=== PATIENT | male | born 1985 | race Caucasian/White ===

== ENCOUNTER 2022-07-05 13:24 | Emergency (ER) | payer OTHER, SELFPAY ==
[2022-07-05 13:43] VITALS: BP 129/82; PULSE 63; RESP 18; TEMP 36.8; O2SAT 99; BMI 26.6
--- NOTE | 2022-07-05 13:45 | DI.RAD.S_ITS ---
PROCEDURE: XR CHEST 1V INDICATIONS: chest pain TECHNIQUE: One view of the chest was acquired. COMPARISON: None. FINDINGS: Surgical changes and devices: None. Lungs and pleura: Lungs are clear. No pleural effusions or pneumothorax. Mediastinum: Mediastinal contours appear normal. Heart size is normal. Bones and chest wall: No suspicious bony lesions. Overlying soft tissues appear unremarkable. IMPRESSION: No acute process. Dictated by: Alejandro Fernandez M.D. on 07/05/2022 at 15:20 Approved by: Alejandro Fernandez M.D. on 07/05/2022 at 15:20
[2022-07-05 14:14] LABS: Add Manual Diff / Slide Review NO; Basophils Absolute Auto 100 /uL (0-100); Basophils Percent Auto 0.8 % (0-2); Eosinophils Absolute Auto 100 /uL (0-450); Hematocrit 44.9 % (41-53); Hemoglobin 15.5 g/dL (13.5-17.5); Lymphocytes Absolute Auto 2100 /uL (1100-4500); Lymphocytes Percent Auto 24.5 % (25-40); Mean Corpuscular HGB Conc 34.5 % (30-36); Mean Corpuscular Hemoglobin 28.9 PG (26-34); Mean Corpuscular Volume 83.8 fL (80-100); Monocytes Absolute Auto 700 /uL (0-900); Monocytes Percent Auto 7.8 % (3-14); Neutrophils Absolute Auto 5600 /uL (1500-7000); Neutrophils Percent Auto 65.9 % (50-75); Platelet Count 271 X10^3/uL (150-400); Red Blood Cell Count 5.36 X10^6/uL (4.5-5.9); Red Cell Distribution Width 13.1 % (11.6-14.8); White Blood Cell Count 8.5 X10^3/uL (4.5-11.0)
[2022-07-05 14:31] LABS: Alanine Aminotransferase 29 IU/L (<50); Albumin 4.4 g/dL (3.5-5.0); Albumin Globulin Ratio 1.6 (1.0-2.8); Alkaline Phosphatase 56 U/L (38-126); Aspartate Aminotransferase 30 IU/L (17-59); Bilirubin Total 0.5 mg/dL (0.2-1.3); Blood Urea Nitrogen 15 mg/dL (9-20); Calcium 9.4 mg/dL (8.4-10.2); Carbon Dioxide 26 mmol/L (22-32); Chloride 103 mmol/L (98-107); Creatine Kinase 63 U/L (55-170); Estimated Glomerular Filt Rate > 60 mL/min (>60); Globulin 2.8 g/dL (1.7-4.1); Glucose 101 mg/dL (70-100); HEMOLYSIS < 15 (0-50); Lipase 107 U/L (23-300); Magnesium 1.8 mg/dL (1.6-2.3); Potassium 3.8 mmol/L (3.4-5.1); Sodium 140 mmol/L (137-145); Total Protein 7.2 g/dL (6.3-8.2)
[2022-07-05 14:43] LABS: Troponin I < 0.012 ng/mL (0.01-0.034)
--- NOTE | 2022-07-05 14:49 | ED_ITS ---
HPI - Chest Pain <GUERO Luna - Last Filed: 07/05/22 20:11> General Chief Complaint: Chest Pain Stated Complaint: Chest pains Time Seen by Provider: 07/05/22 14:37 Source: patient Mode of arrival: Family Vehicle Limitations: no limitations History of Present Illness HPI narrative: This is a 37-year-old male presents to the emergency department with concern about his left-sided chest pain which he states is present with deep breaths, and with certain movements. He says it is reproducible but he also endorses that he woke up with it this morning. He states it started last night, states that he is COVID vaccinated x2, he had a runny nose days ago, denies a sore throat, shortness of breath, difficulty breathing, epigastric pain, flank pain or other pain other than the anterior left upper chest. He denies any radiation, endorses feeling dehydrated because he has not been drinking water. Denies any history of hypertension, coronary artery disease, any family history of cardiac at a young age, any palpitations, shortness of breath or heartburn. Related Data Allergies Allergy/AdvReac Type Severity Reaction Status Date / Time No Known Drug Allergies Allergy Verified 07/05/22 13:50 Review of Systems <GUERO Luna - Last Filed: 07/05/22 20:11> Review of Systems Narrative: Review of systems is negative for acute abnormalities unless otherwise noted in HPI Patient History <GUERO Luna - Last Filed: 07/05/22 20:11> Social History Smoking Status: Former smoker Smoking Status: Former smoker alcohol intake frequency: 0-2 drinks per day Substance Use Type: does not use Exam <GUERO Luna - Last Filed: 07/05/22 20:11> Narrative Exam Narrative: Reviewed vitals signs and nursing notes. General: cooperative, comfortable, in no acute distress, well groomed HEENT: symmetrical facial expressions, moist mucous membranes Cardiovascular: regular rate and rhythm, S1-S2 without tachycardia or arrhythmia, no murmur, gallop or rub, no peripheral edema, warm extremities Respiratory: normal effort, able to speak in complete sentences, without wheezing, stridor, or abnormal breath sounds. No retractions or tachypnea. GI: abdomen soft, no tenderness to the right upper quadrant, nontender to palpation, nondistended, without masses, rebound tenderness or exquisite tenderness with exam. MSK: moves all extremities, neurovascularly intact, no weakness, normal tone Skin: brisk capillary refill, without pallor or erythema Neuro: normal speech and cognition, A&O x3, ambulatory, clear speech Psych: mental status is grossly normal, congruent mood, normal affect, pleasant and cooperative Initial Vital Signs Initial Vital Signs: Vital Signs Temperature 98.2 F 07/05/22 13:43 Pulse Rate 63 07/05/22 13:43 Respiratory Rate 18 07/05/22 13:43 Blood Pressure 129/82 07/05/22 13:43 Pulse Oximetry 99 07/05/22 13:43 Oxygen Delivery Method 07/05/22 13:43 <Summer Banks DO - Last Filed: 07/06/22 08:24> Initial Vital Signs Initial Vital Signs: Vital Signs Temperature 98.2 F 07/05/22 13:43 Pulse Rate 63 07/05/22 13:43 Respiratory Rate 18 07/05/22 13:43 Blood Pressure 129/82 07/05/22 13:43 Pulse Oximetry 99 07/05/22 13:43 Oxygen Delivery Method 07/05/22 13:43 Course <GUERO Luna - Last Filed: 07/05/22 20:11> Orders Ordered: ED Orders 07/05/22 13:45 XR chest 1V Stat 07/05/22 13:46 EKG-12 Lead Stat 07/05/22 13:59 Complete Blood Count AUTO DIFF Stat Comprehensive Metabolic Panel Stat Lipase Stat Magnesium Stat Troponin & CK Cardiac Panel Stat 07/05/22 15:01 Covid-19 + FLU A/B + RSV - PCR Stat EKG-12 Lead Stat Vital Signs Vital signs: Vital Signs - 8 hr 07/05/22 13:43 07/05/22 15:55 Temperature 98.2 F Pulse Rate 63 66 Respiratory Rate 18 16 Blood Pressure 129/82 120/69 Pulse Oximetry 99 99 Oxygen Delivery Method Room Air Room Air <Summer Banks DO - Last Filed: 07/06/22 08:24> Orders Ordered: ED Orders 07/05/22 13:45 XR chest 1V Stat 07/05/22 13:46 EKG-12 Lead Stat 07/05/22 13:59 Complete Blood Count AUTO DIFF Stat Comprehensive Metabolic Panel Stat Lipase Stat Magnesium Stat Troponin & CK Cardiac Panel Stat 07/05/22 15:01 Covid-19 + FLU A/B + RSV - PCR Stat EKG-12 Lead Stat Vital Signs Vital signs: Vital Signs - 8 hr 07/05/22 13:43 07/05/22 15:55 Temperature 98.2 F Pulse Rate 63 66 Respiratory Rate 18 16 Blood Pressure 129/82 120/69 Pulse Oximetry 99 99 Oxygen Delivery Method Room Air Room Air MDM - Chest Pain <Tuyet Rendon, [facility] [place] - Last Filed: 07/05/22 20:11> Lab Data Result diagrams: 07/05/22 13:59 07/05/22 13:59 Labs: Lab Results 07/05/22 07/05/22 07/05/22 Range/Units 13:59 13:59 15:01 WBC 8.5 (4.5-11.0) X10^3/uL RBC 5.36 (4.5-5.9) X10^6/uL Hgb 15.5 (13.5-17.5) g/dL Hct 44.9 (41-53) % MCV 83.8 (80-100) fL MCH 28.9 (26-34) PG MCHC 34.5 (30-36) % RDW 13.1 (11.6-14.8) % Plt Count 271 (150-400) X10^3/uL Neut % (Auto) 65.9 (50-75) % Lymph % (Auto) 24.5 L (25-40) % Trigg % (Auto) 7.8 (3-14) % Eos % (Auto) 1.0 L (2-4) % Baso % (Auto) 0.8 (0-2) % Neut # (Auto) 5600 (7689-6330) /uL Lymph # (Auto) 2100 (7436-0318) /uL Trigg # (Auto) 700 (0-900) /uL Eos # (Auto) 100 (0-450) /uL Baso # (Auto) 100 (0-100) /uL Sodium 140 (137-145) mmol/L Potassium 3.8 (3.4-5.1) mmol/L Chloride 103 (98-107) mmol/L Carbon Dioxide 26 (22-32) mmol/L BUN 15 (9-20) mg/dL Creatinine 1.07 (0.66-1.25) mg/dL Estimated GFR > 60 (>60) mL/min BUN/Creatinine Ratio 14.0 (6-22) Glucose 101 H (70-100) mg/dL Calcium 9.4 (8.4-10.2) mg/dL Magnesium 1.8 (1.6-2.3) mg/dL Total Bilirubin 0.5 (0.2-1.3) mg/dL AST 30 (17-59) IU/L ALT 29 (<50) IU/L Alkaline Phosphatase 56 (38-126) U/L Total Creatine Kinase 63 (55-170) U/L CK-MB (CK-2) TNP CK-MB (CK-2) Rel Index TNP Troponin I < 0.012 (0.01-0.034) ng/mL Total Protein 7.2 (6.3-8.2) g/dL Albumin 4.4 (3.5-5.0) g/dL Globulin 2.8 (1.7-4.1) g/dL Albumin/Globulin Ratio 1.6 (1.0-2.8) Lipase 107 (23-300) U/L SARS-CoV-2 (PCR) Negative (Negative) Influenza A (RT-PCR) Flu a negative (NEGATIVE) Influenza B (RT-PCR) Flu b negative (NEGATIVE) RSV (PCR) Negative (Negative) Imaging Data Chest x-ray: Radiologist's Impression: PROCEDURE:? XR CHEST 1V ? INDICATIONS:? chest pain ? TECHNIQUE:? One view of the chest was acquired.? ? COMPARISON:? None. ? FINDINGS:? ? Surgical changes and devices:? None.? ? Lungs and pleura:? Lungs are clear.? No pleural effusions or pneumothorax.? ? Mediastinum:? Mediastinal contours appear normal.? Heart size is normal.? ? Bones and chest wall:? No suspicious bony lesions.? Overlying soft tissues appear unremarkable.? ? IMPRESSION:? No acute process. ? ? Dictated by: Alejandro Fernandez M.D. on 07/05/2022 at 15:20 ? ? Approved by: Alejandro Fernandez M.D. on 07/05/2022 at 15:20 ? ECG Data Interpretation: EKG independently reviewed by myself at 1348 reveals normal sinus rhythm at [62] bpm with regular axis and intervals. No STEMI, ST segment changes, arrhythmia, or acute ischemic changes. Repeat EKG independently reviewed by myself at 1502 reveals normal sinus rhythm at [59] bpm with regular axis and intervals. No STEMI, ST segment changes, arrhythmia, or acute ischemic changes. MDM Narrative Medical decision making narrative: This is a otherwise healthy 37-year-old male without any prior medical history presents to the emergency department complaining of left-sided anterior chest pain with deep breath, tenderness to palpation, concern for possible strained muscle, denies any recent illness symptoms. His COVID, influenza and RSV PCR worse were all negative. Lab work today is reassuring, without any leukocytosis, anemia, electrolyte abnormalities, no elevation to his liver enzymes, lipase, troponin, CK or other. Chest x-ray is negative for acute cardiopulmonary abnormalities, 2 EKGs were completed 2 hours apart without any ST changes, arrhythmia, normal axis intervals. Multiple causes of chest pain considered including CO, PE, pneumothorax, pneumonia, aortic dissection, and pleurisy. Patient reports no radiation, no diaphoresis, no provocation with exertion, and no vomiting. Differential includes viral respiratory illness, dehydration, strained muscle, pleurisy, costochondritis, pericarditis without any abnormal findings to indicate so. Patient is appropriate and amenable to discharge home. Vital signs are stable on repeat examination is unremarkable. Patient has been informed of results. Patient has been given strict return to ER precautions for any new or worsening symptoms. Patient understands to follow up closely with outpatient providers as instructed. Patient understands plan and agrees to discharge home. All questions and concerns answered at this time. <Summer Banks, DO - Last Filed: 07/06/22 08:24> Lab Data Labs: Lab Results 07/05/22 07/05/22 07/05/22 Range/Units 13:59 13:59 15:01 WBC 8.5 (4.5-11.0) X10^3/uL RBC 5.36 (4.5-5.9) X10^6/uL Hgb 15.5 (13.5-17.5) g/dL Hct 44.9 (41-53) % MCV 83.8 (80-100) fL MCH 28.9 (26-34) PG MCHC 34.5 (30-36) % RDW 13.1 (11.6-14.8) % Plt Count 271 (150-400) X10^3/uL Neut % (Auto) 65.9 (50-75) % Lymph % (Auto) 24.5 L (25-40) % Trigg % (Auto) 7.8 (3-14) % Eos % (Auto) 1.0 L (2-4) % Baso % (Auto) 0.8 (0-2) % Neut # (Auto) 5600 (9068-1216) /uL Lymph # (Auto) 2100 (9603-6836) /uL Trigg # (Auto) 700 (0-900) /uL Eos # (Auto) 100 (0-450) /uL Baso # (Auto) 100 (0-100) /uL Sodium 140 (137-145) mmol/L Potassium 3.8 (3.4-5.1) mmol/L Chloride 103 (98-107) mmol/L Carbon Dioxide 26 (22-32) mmol/L BUN 15 (9-20) mg/dL Creatinine 1.07 (0.66-1.25) mg/dL Estimated GFR > 60 (>60) mL/min BUN/Creatinine Ratio 14.0 (6-22) Glucose 101 H (70-100) mg/dL Calcium 9.4 (8.4-10.2) mg/dL Magnesium 1.8 (1.6-2.3) mg/dL Total Bilirubin 0.5 (0.2-1.3) mg/dL AST 30 (17-59) IU/L ALT 29 (<50) IU/L Alkaline Phosphatase 56 (38-126) U/L Total Creatine Kinase 63 (55-170) U/L CK-MB (CK-2) TNP CK-MB (CK-2) Rel Index TNP Troponin I < 0.012 (0.01-0.034) ng/mL Total Protein 7.2 (6.3-8.2) g/dL Albumin 4.4 (3.5-5.0) g/dL Globulin 2.8 (1.7-4.1) g/dL Albumin/Globulin Ratio 1.6 (1.0-2.8) Lipase 107 (23-300) U/L SARS-CoV-2 (PCR) Negative (Negative) Influenza A (RT-PCR) Flu a negative (NEGATIVE) Influenza B (RT-PCR) Flu b negative (NEGATIVE) RSV (PCR) Negative (Negative) ECG Data Interpretation: EKG independently reviewed by myself at 1348 reveals normal sinus rhythm at [62] bpm with regular axis and intervals. No STEMI, ST segment changes, arrhythmia, or acute ischemic changes. Repeat EKG independently reviewed by myself at 1502 reveals normal sinus rhythm at [59] bpm with regular axis and intervals. No STEMI, ST segment changes, arrhythmia, or acute ischemic changes. Priyanick-normal sinus rhythm rate 62 NJ interval 138 QRS 94 QTC 383 no previous EKG to compare no ST changes or T-wave inversions EKG 2. Sinus rhythm rate 59 no changes prior Discharge Plan Departure Patient Disposition: Home Clinical Impression: Chest pain, pleuritic Instructions: DI for Viral Upper Respiratory Infection -- Adult, DI for Atypical Chest Pain Activity Restrictions/Additional Instructions: *You have been diagnosed with a normal cardiac evaluation, I do not suspect that this is cardiac in nature. I have a suspicion that this is a viral illness that has just started. We will call you if your respiratory panel is positive for 1 of the tested viruses today. If you have ongoing symptoms that turned into a cold or upper respiratory illness, please take 20 mg of Zyrtec each night, if you have nausea, vomiting, worsening chest pain with weakness or sensation changes, please come back to the emergency department for another evaluation. Focus on staying hydrated, use Tylenol and ibuprofen as needed for your symptoms. I hope you start feeling better soon, your chest x-ray does not show any acute process either. I wish you the best, if you have ongoing symptoms, please get cleared by [employer] prior to return to duty. *What to do: *Please continue to take your regular medications as directed. [ ] New medication prescriptions sent to your pharmacy: [ ] [ ] New medication written as a paper prescription [ x] No new medications given *Please follow up with your primary care provider in 2-3 days, call for an appointment. Let them know you were seen in the Emergency Department and that we asked that you be seen for follow-up. We will electronically transmit a record of today's note if your PCP is in our system *If you do not have a primary care provider please contact [phone] to establish care with one of the [facility] primary care providers. *Return to Emergency Department if you should have any new, worsening, or concerning symptoms, such as [fever greater than 101F, chills, worsening pain, persistent vomiting or other bothersome symptoms]. Referrals: ProviderRory [Primary Care Provider] - Visit Report Forms: Patient Portal/API <Summer Banks DO - Last Filed: 07/06/22 08:24> Cosign ED Attending Shweta Attestation: I was immediately available in the department for consultation. Documentation has been reviewed. I agree with assessment and plan.
[2022-07-05 15:44] LABS: Influenza A - CEPHEID Flu A NEGATIVE (NEGATIVE); Influenza B - CEPHEID Flu B NEGATIVE (NEGATIVE); Respiratory Syncytial Virus Negative (Negative)
[2022-07-05 15:52] LABS: COVID-19 CEPHEID PCR (VTM/NP) Negative (Negative)
[2022-07-05 15:55] VITALS: BP 120/69; PULSE 66; RESP 16; O2SAT 99
== END 2022-07-05 15:57 | disposition home or self-care (01) ==
PROVIDERS: Emergency Medicine; Emergency Provider Nurse Practitioner Critical Care Medicine
DX: R07.89 Other chest pain (principal); Z20.822 Contact with and (suspected) exposure to COVID-19
CPT/HCPCS: 0241U; 36415; 71045; 80053; 82550; 83690; 83735; 84484; 85025; 93005; 99283; 99284